=== PATIENT | male | born 1965 | race Caucasian/White ===

== ENCOUNTER 2016-06-26 18:49 | Emergency (ER) | payer SELFPAY ==
[~2016-06-26] VITALS: Ht 172.7 cm; Wt 81.6 kg
[~2016-06-26 18:49] MED LIST: ALBUTEROL0.09 MG/A2 INH; MEDROL DOSEPAK4 MG PO; Motrin,Rufen800 MG PO; NORCO 10-325 T1 EACH PO; PEPCID20 MG PO; ZITHROMAX Z PA250 MG PO; ZOFRAN4 MG PO
[2016-06-26] MEDS ORDERED: Orphenadrine C100 MG PO (20:19)
[2016-06-26] MEDS ORDERED: HYDROCODONE BIT1 T11 PO (20:19)
[2016-06-26] MEDS ORDERED: ANAPROX DS550 MG PO (20:19)
== END 2016-06-26 20:43 | disposition home or self-care (01) ==
LOC: ED 18:49
DX: M54.12 Radiculopathy, cervical region (principal)

== ENCOUNTER 2016-09-04 19:55 | Emergency (ER) | payer SELFPAY ==
[~2016-09-04] VITALS: Ht 172.7 cm; Wt 79.4 kg
[~2016-09-04 19:55] MED LIST changes: +ANAPROX DS550 MG PO; +HYDROCODONE BIT1 T11 PO; +Orphenadrine C100 MG PO
== END 2016-09-04 22:14 | disposition home or self-care (01) ==
LOC: ED 19:55
DX: S00.83XA Contusion of other part of head, initial encounter (principal); Y04.2XXA Assault by strike against or bumped into by another person, initial encounter; Y93.89 Activity, other specified; Y92.810 Car as the place of occurrence of the external cause; Y99.8 Other external cause status

== ENCOUNTER 2016-11-22 15:47 | Emergency (ER) | payer OTHER ==
[~2016-11-22] VITALS: Ht 172.7 cm; Wt 83.9 kg
[2016-11-22] MEDS ORDERED: VIBRAMYCIN100 MG PO (17:44)
[2016-11-22] MEDS ORDERED: TESSALON PERLE100 M1 PO (17:44)
[2016-11-22] MEDS ORDERED: DELTASONE20 M1 PO (17:44)
[2016-11-22] MEDS ORDERED: PROAIR HFA8.5 GM INH (17:44)
== END 2016-11-22 18:00 | disposition home or self-care (01) ==
LOC: ED 15:47
DX: J40 Bronchitis, not specified as acute or chronic (principal)

== ENCOUNTER 2016-12-01 20:35 | Emergency (ER) | payer OTHER ==
[~2016-12-01] VITALS: Ht 172.7 cm; Wt 71.7 kg
[~2016-12-01 20:35] MED LIST changes: +DELTASONE20 M1 PO; +PROAIR HFA8.5 GM INH; +TESSALON PERLE100 M1 PO; +VIBRAMYCIN100 MG PO
[2016-12-01] MEDS ORDERED: ANAPROX DS550 MG PO (21:47)
== END 2016-12-01 22:10 | disposition home or self-care (01) ==
LOC: ED 20:35
DX: M72.2 Plantar fascial fibromatosis (principal); M79.672 Pain in left foot; Z79.899 Other long term (current) drug therapy

== ENCOUNTER 2017-02-10 12:53 | Emergency (ER) | payer OTHER ==
[~2017-02-10] VITALS: Ht 172.7 cm; Wt 90.7 kg
[2017-02-10 13:32] LABS: BILIRUBIN NEGATIVE (NEGATIVE); BLOOD NEGATIVE (NEGATIVE); CLARITY CLEAR (CLEAR); COLOR YELLOW (YELLOW); GLUCOSE NEGATIVE (NEGATIVE); KETONE NEGATIVE (NEGATIVE); LEUKO ESTERASE NEGATIVE (NEGATIVE); NITRITE NEGATIVE (NEGATIVE); SPECIFIC GRAVITY <= 1.005 (1.005-1.030); UROBILINOGEN 0.2 E.U./dl (0.2-1.0)
[2017-02-10 13:44] LABS: EPITHELIAL CELLS 0-2
== END 2017-02-10 13:35 | disposition home or self-care (01) ==
LOC: ED 12:53
PROVIDERS: Nurse Practitioner Family
DX: Z20.2 Contact with and (suspected) exposure to infections with a predominantly sexual mode of transmission (principal); R03.0 Elevated blood-pressure reading, without diagnosis of hypertension

== ENCOUNTER 2017-03-01 01:45 | Emergency (ER) | payer OTHER ==
[~2017-03-01] VITALS: Wt 83.9 kg
[2017-03-01] MEDS ORDERED: AUGMENTIN 875-875 MG PO (02:45)
== END 2017-03-01 02:48 | disposition home or self-care (01) ==
LOC: ED 01:45
DX: R51 Headache (principal); J32.9 Chronic sinusitis, unspecified

== ENCOUNTER → 2017-03-14 | Outpatient (CLI) | payer OTHER ==
[~2017-03-14] MED LIST changes: +AUGMENTIN 875-875 MG PO
== END | disposition home or self-care (01) ==
LOC: RESCLI 13:23
DX: M54.41 Lumbago with sciatica, right side (principal); M54.42 Lumbago with sciatica, left side; G89.29 Other chronic pain; G43.919 Migraine, unspecified, intractable, without status migrainosus; E66.9 Obesity, unspecified

== ENCOUNTER → 2017-03-15 | Outpatient (CLI) | payer OTHER ==
[2017-03-15 07:39] LABS: BILIRUBIN NEGATIVE (NEGATIVE); BLOOD TRACE-INTACT (NEGATIVE); CLARITY CLEAR (CLEAR); COLOR YELLOW (YELLOW); GLUCOSE 2+ (NEGATIVE); KETONE NEGATIVE (NEGATIVE); LEUKO ESTERASE NEGATIVE (NEGATIVE); NITRITE NEGATIVE (NEGATIVE); UROBILINOGEN 0.2 E.U./dl (0.2-1.0)
[2017-03-15 07:46] LABS: BASO % 0.2 % (0.0-1.0); EOS % 0.1 % (1.0-4.0); HEMATOCRIT 44.6 % (42.0-52.0); HEMOGLOBIN 14.7 g/dl (14.0-18.0); LYMPH # 2.1 10*3/uL (1.3-4.4); LYMPH % 18.4 % (27.0-41.0); MEAN CELL VOLUME 85.1 fl (80.0-94.0); MEAN CORPUSCULAR HGB 28.1 pg (27.0-31.0); MEAN PLATELET VOLUME 11.5 fl (9.6-12.3); MONO # 0.5 10*3/uL (0.1-1.0); MONO % 4.7 % (3.0-9.0); NEUT # 8.6 10*3/uL (2.3-7.9); NEUT % 75.9 % (47.0-73.0); PLATELET COUNT AUTOMATED 206 10*3/uL (130-400); RED BLOOD COUNT 5.24 10*6/uL (4.50-5.90); RED CELL DISTRI WIDTH 12.6 % (0-14.5); WHITE BLOOD COUNT 11.3 10*3/uL (4.8-10.8)
[2017-03-15 08:24] LABS: ALBUMIN 3.8 gm/dl (3.1-4.5); BUN 23 mg/dl (7-24); CHLORIDE 105 mmol/L (98-107); CHOLESTEROL 299 mg/dL (<200); IRON 88 ug/dL (65-175); POTASSIUM 4.6 mmol/L (3.5-5.1); SGOT/AST 41 IU/L (3-35); SGPT/ALT 77 U/L (12-78); SODIUM 140 mmol/L (136-145); TOTAL PROTEIN 7.7 gm/dL (6.4-8.2); TRIGLYCERIDES 138 mg/dl (<150); VLDL CHOLESTEROL 28 mg/dL (6-40)
[2017-03-15 08:31] LABS: ALKALINE PHOSPHATASE 99 U/L (45-117); HDL CHOLESTEROL 56 mg/dl (40-60); LDL CHOLESTEROL 215 mg/dL (9-159); TOTAL IRON BINDING CAPACITY 320 ug/dl (250-450)
[2017-03-15 09:10] LABS: VITAMIN D, 25-HYDROXY 22.9 ng/mL (30-100)
== END | disposition home or self-care (01) ==
LOC: LAB 01:17
PROVIDERS: Internal Medicine
DX: M54.41 Lumbago with sciatica, right side (principal); R79.89 Other specified abnormal findings of blood chemistry

== ENCOUNTER 2017-03-25 22:42 | Emergency (ER) | payer OTHER ==
[~2017-03-25] VITALS: Wt 86.2 kg
[2017-03-26] MEDS ORDERED: NEOSPORIN OINT15 GM T ×2 (01:32→02:29)
== END 2017-03-26 01:26 | disposition home or self-care (01) ==
LOC: ED 22:42
DX: S31.113A Laceration without foreign body of abdominal wall, right lower quadrant without penetration into peritoneal cavity, initial encounter (principal); Z79.899 Other long term (current) drug therapy; W27.2XXA Contact with scissors, initial encounter; Y93.89 Activity, other specified; Y92.89 Other specified places as the place of occurrence of the external cause; Y99.9 Unspecified external cause status

== ENCOUNTER 2017-08-17 13:37 | Emergency (ER) | payer OTHER ==
[~2017-08-17] VITALS: Ht 172.7 cm; Wt 83.9 kg
[~2017-08-17 13:37] MED LIST changes: +NEOSPORIN OINT15 GM T
[2017-08-17 14:36] LABS: BILIRUBIN NEGATIVE (NEGATIVE); BLOOD NEGATIVE (NEGATIVE); CLARITY SL CLOUDY (CLEAR); COLOR YELLOW (YELLOW); GLUCOSE 1+ (NEGATIVE); KETONE NEGATIVE (NEGATIVE); LEUKO ESTERASE NEGATIVE (NEGATIVE); NITRITE NEGATIVE (NEGATIVE); PH 5.5 (5.0-9.0); SPECIFIC GRAVITY >= 1.030 (1.005-1.030); UROBILINOGEN 0.2 E.U./dl (0.2-1.0)
[2017-08-17 14:47] LABS: BASO % 0.5 % (0.0-1.0); EOS # 0.3 10*3/uL (0.0-0.4); HEMATOCRIT 44.7 % (42.0-52.0); HEMOGLOBIN 14.2 g/dl (14.0-18.0); LYMPH # 2.3 10*3/uL (1.3-4.4); LYMPH % 28.7 % (27.0-41.0); MEAN CORPUSCULAR HGB CONC 31.8 g/dl (33.0-37.0); MEAN PLATELET VOLUME 11.2 fl (9.6-12.3); MONO # 0.6 10*3/uL (0.1-1.0); MONO % 7.3 % (3.0-9.0); NEUT # 4.7 10*3/uL (2.3-7.9); PLATELET COUNT AUTOMATED 163 10*3/uL (130-400); RED BLOOD COUNT 5.08 10*6/uL (4.50-5.90)
[2017-08-17 14:56] LABS: BACTERIA 1+; EPITHELIAL CELLS 0-2; MUCOUS 1+
[2017-08-17 15:01] LABS: ALBUMIN 3.4 gm/dl (3.1-4.5); ALKALINE PHOSPHATASE 82 U/L (45-117); BUN 21 mg/dl (7-24); CHLORIDE 108 mmol/L (98-107); CREATININE 1.11 mg/dL (0.70-1.30); POTASSIUM 4.4 mmol/L (3.5-5.1); SGOT/AST 18 IU/L (3-35); SGPT/ALT 26 U/L (12-78); SODIUM 140 mmol/L (136-145); TOTAL PROTEIN 6.9 gm/dL (6.4-8.2)
[2017-08-17 15:04] LABS: LIPASE 142 U/L (73-393)
== END 2017-08-17 17:13 | disposition home or self-care (01) ==
LOC: ED 13:37
PROVIDERS: Physician Assistant
DX: N23 Unspecified renal colic (principal); Z79.899 Other long term (current) drug therapy; Z87.442 Personal history of urinary calculi

== ENCOUNTER → 2017-08-23 | Outpatient (CLI) | payer OTHER ==
[2017-08-23 15:58] LABS: HEMATOCRIT 46.9 % (42.0-52.0); MEAN CELL VOLUME 87.2 fl (80.0-94.0); MEAN CORPUSCULAR HGB 27.9 pg (27.0-31.0); MEAN PLATELET VOLUME 11.2 fl (9.6-12.3); RED BLOOD COUNT 5.38 10*6/uL (4.50-5.90); RED CELL DISTRI WIDTH 14.1 % (0-14.5); WHITE BLOOD COUNT 7.5 10*3/uL (4.8-10.8)
[2017-08-23 16:32] LABS: ALBUMIN 3.9 gm/dl (3.1-4.5); ALKALINE PHOSPHATASE 87 U/L (45-117); BUN 30 mg/dl (7-24); CHLORIDE 108 mmol/L (98-107); CHOLESTEROL 252 mg/dL (<200); CPK 185 U/L (39-308); CREATININE 1.27 mg/dL (0.70-1.30); HDL CHOLESTEROL 49 mg/dl (40-60); LDL CHOLESTEROL 171 mg/dL (9-159); POTASSIUM 4.7 mmol/L (3.5-5.1); SGOT/AST 18 IU/L (3-35); SGPT/ALT 32 U/L (12-78); SODIUM 144 mmol/L (136-145); TOTAL PROTEIN 7.6 gm/dL (6.4-8.2); TRIGLYCERIDES 160 mg/dl (<150); VLDL CHOLESTEROL 32 mg/dL (6-40)
== END | disposition home or self-care (01) ==
LOC: LAB 15:42
PROVIDERS: Family Medicine
DX: E78.00 Pure hypercholesterolemia, unspecified (principal); E55.9 Vitamin D deficiency, unspecified; M54.5 Low back pain; N20.0 Calculus of kidney; H40.9 Unspecified glaucoma

== ENCOUNTER → 2017-09-01 | Outpatient (CLI) | payer OTHER | END | disposition home or self-care (01) | LOC: LAB 10:20 | DX: Z12.5 Encounter for screening for malignant neoplasm of prostate (principal) ==

== ENCOUNTER → 2018-03-06 | Outpatient (CLI) | payer OTHER ==
[~2018-03-06] MED LIST changes: +IMODIUM A-D2 M2 PO
== END | disposition home or self-care (01) ==
LOC: RAD 14:03
DX: R91.8 Other nonspecific abnormal finding of lung field (principal)

== ENCOUNTER → 2018-03-28 | Outpatient (CLI) | payer OTHER ==
[2018-03-28 10:12] LABS: HEMATOCRIT 46.1 % (42.0-52.0); MEAN CELL VOLUME 87.1 fl (80.0-94.0); MEAN CORPUSCULAR HGB 28.4 pg (27.0-31.0); MEAN CORPUSCULAR HGB CONC 32.5 g/dl (33.0-37.0); RED BLOOD COUNT 5.29 10*6/uL (4.50-5.90); RED CELL DISTRI WIDTH 13.3 % (0-14.5)
[2018-03-28 10:40] LABS: ALBUMIN 3.7 gm/dl (3.1-4.5); ALKALINE PHOSPHATASE 76 U/L (45-117); BUN 19 mg/dl (7-24); CHLORIDE 108 mmol/L (98-107); CHOLESTEROL 219 mg/dL (<200); CREATININE 1.26 mg/dL (0.70-1.30); HDL CHOLESTEROL 54 mg/dl (40-60); LDL CHOLESTEROL 152 mg/dL (9-159); POTASSIUM 4.7 mmol/L (3.5-5.1); SGOT/AST 27 IU/L (3-35); SGPT/ALT 31 U/L (12-78); SODIUM 143 mmol/L (136-145); TOTAL PROTEIN 7.1 gm/dL (6.4-8.2); TRIGLYCERIDES 67 mg/dl (<150); VLDL CHOLESTEROL 13 mg/dL (6-40)
== END | disposition home or self-care (01) ==
LOC: LAB 09:45
PROVIDERS: Family Medicine
DX: E55.9 Vitamin D deficiency, unspecified (principal); E78.00 Pure hypercholesterolemia, unspecified; F41.1 Generalized anxiety disorder; E74.00 Glycogen storage disease, unspecified

== ENCOUNTER 2018-04-20 12:03 | Emergency (ER) | payer OTHER ==
[~2018-04-20] VITALS: Ht 172.7 cm; Wt 84.4 kg
--- NOTE | ~2018-04-20 | EKG ---
[place], [place] ELECTROCARDIOGRAM REPORT NAME: JULIO MARISCAL UNIT #: [id number] ROOM: DOCTOR: EPIPHANY DRAFT REPORT BIRTHDATE: [birth year] [facility] Test Date: 2018-04-20 Test Time: 13:40:19 Pat Name: JULIO MARISCAL Department: Room: Gender: M Clinical Documentation Nurse: Angie Richmond : 1965 Requested By: ROB WALDROP Order Number: [id number] Reading MD: Arsen Heath MD Measurements Intervals [place] Rate: 60 P: 30 CA: 147 QRS: 0 QRSD: 118 T: 42 QT: 407 QTc: 407 Interpretive Statements Sinus rhythm Incomplete right bundle branch block Inferior infarct, old No previous ECG available for comparison Electronically Signed On 04-20-2018 17:54:02 PST by Arsen Heath MD CM:EKGRPT:ELECTROCARDIOGRAM REPORT [id number] ROB WANG DRAFT REPORT ROB WALDROP DO
[~2018-04-20 12:03] MED LIST changes: -IMODIUM A-D2 M2 PO
[2018-04-20 13:39] LABS: BASO % 0.2 % (0.0-1.0); EOS # 0.1 10*3/uL (0.0-0.4); EOS % 1.4 % (1.0-4.0); HEMATOCRIT 52.1 % (42.0-52.0); HEMOGLOBIN 16.7 g/dl (14.0-18.0); LYMPH # 0.5 10*3/uL (1.3-4.4); LYMPH % 5.3 % (27.0-41.0); MEAN CELL VOLUME 88.3 fl (80.0-94.0); MEAN CORPUSCULAR HGB 28.3 pg (27.0-31.0); MEAN CORPUSCULAR HGB CONC 32.1 g/dl (33.0-37.0); MEAN PLATELET VOLUME 11.3 fl (9.6-12.3); MONO # 0.4 10*3/uL (0.1-1.0); NEUT # 8.4 10*3/uL (2.3-7.9); NEUT % 88.8 % (47.0-73.0); PLATELET COUNT AUTOMATED 164 10*3/uL (130-400); RED CELL DISTRI WIDTH 13.2 % (0-14.5); WHITE BLOOD COUNT 9.5 10*3/uL (4.8-10.8)
[2018-04-20 13:49] LABS: ACT PARTIAL THROMBO TIME 19.8 SECONDS (20.8-31.5)
[2018-04-20 14:08] LABS: ALBUMIN 3.8 gm/dl (3.1-4.5); ALKALINE PHOSPHATASE 92 U/L (45-117); BUN 26 mg/dl (7-24); CHLORIDE 110 mmol/L (98-107); CREATININE 1.25 mg/dL (0.70-1.30); PHOSPHOROUS 2.6 mg/dL (2.5-4.9); POTASSIUM 4.7 mmol/L (3.5-5.1); SGOT/AST 22 IU/L (3-35); SGPT/ALT 32 U/L (12-78); SODIUM 141 mmol/L (136-145); TOTAL PROTEIN 7.8 gm/dL (6.4-8.2)
[2018-04-20 14:11] LABS: TROPONIN I < 0.015 ng/ml (<0.045)
[2018-04-20] MEDS ORDERED: IMODIUM A-D2 M2 PO (15:05)
[2018-04-20] MEDS ORDERED: ZOFRAN4 MG PO (15:05)
[2018-06-03] MEDS ORDERED: Motrin,Rufen800 MG PO (14:37)
== END 2018-04-20 15:09 | disposition home or self-care (01) ==
LOC: ED 12:03
PROVIDERS: Family Medicine
DX: K52.9 Noninfective gastroenteritis and colitis, unspecified (principal); R42 Dizziness and giddiness; R55 Syncope and collapse

== ENCOUNTER → 2018-06-15 | Outpatient (CLI) | payer OTHER ==
[~2018-06-15] MED LIST changes: +IMODIUM A-D2 M2 PO
[2018-06-15 10:42] LABS: CHLORIDE 107 mmol/L (98-107); POTASSIUM 5.1 mmol/L (3.5-5.1); SODIUM 142 mmol/L (136-145)
[2018-06-15 11:02] LABS: ALBUMIN 3.7 gm/dl (3.1-4.5); ALKALINE PHOSPHATASE 80 U/L (45-117); BUN 17 mg/dl (7-24); CHOLESTEROL 193 mg/dL (<200); CREATININE 1.16 mg/dL (0.70-1.30); HDL CHOLESTEROL 59 mg/dl (40-60); LDL CHOLESTEROL 122 mg/dL (9-159); SGOT/AST 24 IU/L (3-35); SGPT/ALT 27 U/L (12-78); TOTAL PROTEIN 7.4 gm/dL (6.4-8.2); TRIGLYCERIDES 62 mg/dl (<150); VLDL CHOLESTEROL 12 mg/dL (6-40)
== END | disposition home or self-care (01) ==
LOC: LAB 09:42
PROVIDERS: Family Medicine
DX: E78.00 Pure hypercholesterolemia, unspecified (principal); E74.9 Disorder of carbohydrate metabolism, unspecified

== ENCOUNTER → 2018-09-25 | Outpatient (CLI) | payer OTHER ==
[2018-09-25 16:12] LABS: ALBUMIN 3.9 gm/dl (3.1-4.5); ALKALINE PHOSPHATASE 87 U/L (45-117); BUN 33 mg/dl (7-24); CHLORIDE 108 mmol/L (98-107); CHOLESTEROL 206 mg/dL (<200); CPK 187 U/L (39-308); CREATININE 1.26 mg/dL (0.70-1.30); HDL CHOLESTEROL 56 mg/dl (40-60); LDL CHOLESTEROL 125 mg/dL (9-159); POTASSIUM 4.2 mmol/L (3.5-5.1); SGOT/AST 22 IU/L (3-35); SGPT/ALT 26 U/L (12-78); SODIUM 141 mmol/L (136-145); TOTAL PROTEIN 7.5 gm/dL (6.4-8.2); TRIGLYCERIDES 126 mg/dl (<150); VLDL CHOLESTEROL 25 mg/dL (6-40)
== END | disposition home or self-care (01) ==
LOC: LAB 14:46
PROVIDERS: Family Medicine
DX: E78.00 Pure hypercholesterolemia, unspecified (principal); E74.9 Disorder of carbohydrate metabolism, unspecified

== ENCOUNTER 2019-01-19 15:25 | Emergency (ER) | payer OTHER ==
[~2019-01-19] VITALS: Ht 172.7 cm; Wt 83.9 kg
[2019-01-19] MEDS ORDERED: AMOXICILLIN500 M2 PO (15:42)
[2019-01-19] MEDS ORDERED: Motrin,Rufen800 MG PO (15:42)
== END 2019-01-19 15:50 | disposition home or self-care (01) ==
LOC: ED 15:25
DX: K08.89 Other specified disorders of teeth and supporting structures (principal); K21.9 Gastro-esophageal reflux disease without esophagitis; Z79.899 Other long term (current) drug therapy

== ENCOUNTER → 2019-03-22 | Outpatient (CLI) | payer OTHER ==
[~2019-03-22] MED LIST changes: +AMOXICILLIN500 M2 PO
[2019-03-22 13:11] LABS: HEMATOCRIT 43.7 % (42.0-52.0); HEMOGLOBIN 14.1 g/dl (14.0-18.0); MEAN CELL VOLUME 89.4 fl (80.0-94.0); MEAN CORPUSCULAR HGB 28.8 pg (27.0-31.0); MEAN CORPUSCULAR HGB CONC 32.3 g/dl (33.0-37.0); MEAN PLATELET VOLUME 10.8 fl (9.6-12.3); RED BLOOD COUNT 4.89 10*6/uL (4.50-5.90); RED CELL DISTRI WIDTH 12.5 % (0-14.5); WHITE BLOOD COUNT 6.5 10*3/uL (4.8-10.8)
[2019-03-22 13:37] LABS: ALBUMIN 3.8 gm/dl (3.1-4.5); ALKALINE PHOSPHATASE 67 U/L (45-117); BUN 19 mg/dl (7-24); CHLORIDE 108 mmol/L (98-107); CHOLESTEROL 215 mg/dL (<200); HDL CHOLESTEROL 50 mg/dl (40-60); LDL CHOLESTEROL 141 mg/dL (9-159); POTASSIUM 4.3 mmol/L (3.5-5.1); SGOT/AST 21 IU/L (3-35); SGPT/ALT 29 U/L (12-78); SODIUM 139 mmol/L (136-145); TOTAL PROTEIN 6.9 gm/dL (6.4-8.2); TRIGLYCERIDES 122 mg/dl (<150); VLDL CHOLESTEROL 24 mg/dL (6-40)
== END | disposition home or self-care (01) ==
LOC: LAB 12:40
PROVIDERS: Nurse Practitioner Family
DX: E74.9 Disorder of carbohydrate metabolism, unspecified (principal); E78.00 Pure hypercholesterolemia, unspecified; R73.03 Prediabetes

== ENCOUNTER → 2019-07-09 | Outpatient (CLI) | payer OTHER ==
[2019-07-09 16:10] LABS: HEMATOCRIT 45.9 % (42.0-52.0); MEAN CELL VOLUME 89.8 fl (80.0-94.0); MEAN CORPUSCULAR HGB CONC 32.2 g/dl (33.0-37.0); MEAN PLATELET VOLUME 11.3 fl (9.6-12.3); RED BLOOD COUNT 5.11 10*6/uL (4.50-5.90); RED CELL DISTRI WIDTH 12.6 % (0-14.5); WHITE BLOOD COUNT 7.9 10*3/uL (4.8-10.8)
[2019-07-09 16:26] LABS: ALBUMIN 3.9 gm/dl (3.1-4.5); ALKALINE PHOSPHATASE 76 U/L (45-117); BUN 22 mg/dl (7-24); CHLORIDE 106 mmol/L (98-107); CHOLESTEROL 248 mg/dL (<200); CREATININE 1.45 mg/dL (0.70-1.30); HDL CHOLESTEROL 46 mg/dl (40-60); LDL CHOLESTEROL 148 mg/dL (9-159); POTASSIUM 4.6 mmol/L (3.5-5.1); SGOT/AST 28 IU/L (3-35); SGPT/ALT 38 U/L (12-78); SODIUM 140 mmol/L (136-145); TOTAL PROTEIN 7.2 gm/dL (6.4-8.2); TRIGLYCERIDES 270 mg/dl (<150); VLDL CHOLESTEROL 54 mg/dL (6-40)
== END | disposition home or self-care (01) ==
LOC: LAB 15:28
PROVIDERS: Family Medicine
DX: K21.9 Gastro-esophageal reflux disease without esophagitis (principal); E55.9 Vitamin D deficiency, unspecified; R53.83 Other fatigue; M12.80 Other specific arthropathies, not elsewhere classified, unspecified site; Z79.899 Other long term (current) drug therapy

== ENCOUNTER 2019-08-05 23:04 | Emergency (ER) | payer OTHER ==
[2019-08-06] MEDS ORDERED: PREDNISONE20 M1 PO (00:37)
== END 2019-08-06 01:39 | disposition home or self-care (01) ==
LOC: ED 23:04
DX: M54.12 Radiculopathy, cervical region (principal); M79.601 Pain in right arm